=== PATIENT | female | born 1985 | race Two or more races ===

== ENCOUNTER 2022-04-27 21:41 | Inpatient (IN) | payer MEDICAID ==
[~2022-04-27] VITALS: Ht 154.9 cm; Wt 68.0 kg
[2022-04-27] MEDS ORDERED: KETOROLAC 30MG/ML VIAL IV STA (22:53)
[2022-04-27] MEDS ORDERED: SODIUM CHLORIDE 0.9% 1,000 ML IV ONE (23:00)
[2022-04-27 23:16] LABS: BASOPHILS % 0.5 % (0.0-2.0); HEMATOCRIT. 38.4 % (36.0-48.0); HEMOGLOBIN. 13.2 g/dL (12.0-16.0); LYMPHOCYTES % 34.7 % (20.0-50.0); MEAN CORPUSCULAR HEMOGLOBIN 29.4 pg (28.0-32.0); MEAN CORPUSCULAR VOLUME 85.2 fL (81.0-99.0); MEAN PLATELET VOLUME 8.7 fl (7.4-10.4); MONOCYTES % 8.7 % (2.0-8.0); NEUTROPHILS % 55.1 % (40.0-76.0); PLATELET 351 x1000/uL (130-400); RED BLOOD CELL COUNT 4.51 mill/uL (4.2-5.4); RED CELL DISTRIBUTION WIDTH 12.9 % (11.6-14.6)
[2022-04-27 23:17] LABS: CHLORIDE 104 mEq/L (98-107)
[2022-04-27 23:29] LABS: HCG SCREEN NEGATIVE
[2022-04-28] MEDS ORDERED: PIPERACILLIN/TAZ 3.375G PREMIX 50 ML IV ONE (00:45)
[2022-04-28 01:35] LABS: CLARITY URINE CLEAR (CLEAR); COLOR URINE YELLOW (YELLOW); KETONES URINE 2+ (NEGATIVE); LEUKOCYTE ESTERASE URINE NEGATIVE (NEGATIVE); NITRITE URINE NEGATIVE (NEGATIVE); OCCULT BLOOD URINE NEGATIVE (NEGATIVE); PH URINE 5.5 (4.5-8.0); PROTEIN URINE NEGATIVE (NEGATIVE); SPECIFIC GRAVITY URINE 1.011 (1.005-1.030); UROBILINOGEN URINE 0.2 E.U./dL (0.2-1.0)
[2022-04-28] MEDS ORDERED: KETOROLAC 30MG/ML VIAL IV NR (02:15)
[2022-04-28] MEDS ORDERED: PIPERACILLIN/TAZ 3.375G PREMIX 50 ML IV NR (02:15)
[2022-04-28] MEDS ORDERED: IPRATROPIUM/ALBUTEROL 0.5-3(2.5)MG/3ML NEB HHN PRN (10:00)
[2022-04-28] MEDS ORDERED: CLONIDINE 0.1MG TABLET PO PRN (10:00)
[2022-04-28] MEDS ORDERED: DIPHENHYDRAMINE 50MG/ML VIAL IV PRN (10:00)
[2022-04-28] MEDS ORDERED: ONDANSETRON HCL 4MG/2ML INJ IV PRN (10:00)
[2022-04-28] MEDS ORDERED: ACETAMINOPHEN 325MG TABLET PO PRN (10:00)
[2022-04-28] MEDS ORDERED: MORPHINE SULFATE 2 MG/ML CPJ (NOT FOR IM USE) IV PRN (10:00)
[2022-04-28] MEDS: SODIUM CHLORIDE 0.9% 1,000 ML IV SCH ×2 (14:56→20:35)
[2022-04-28] MEDS ORDERED: NALOXONE HCL 0.4MG/ML VIAL IV PRN (16:45)
[2022-04-28 17:00] VITALS: BP 117/78
[2022-04-28 20:00] VITALS: BP 130/90
[2022-04-28 23:31] VITALS: BP 130/90
[2022-04-29 02:00] VITALS: BP 122/85
[2022-04-29 04:00] VITALS: BP 122/85
[2022-04-29 07:12] LABS: BASOPHILS % 0.6 % (0.0-2.0); EOSINOPHILS % 2.3 % (0.0-5.0); HEMOGLOBIN. 12.3 g/dL (12.0-16.0); LYMPHOCYTES % 41.1 % (20.0-50.0); MEAN CORPUSCULAR HEMOGLOBIN 29.1 pg (28.0-32.0); MEAN CORPUSCULAR VOLUME 85.2 fL (81.0-99.0); MEAN PLATELET VOLUME 8.9 fl (7.4-10.4); MONOCYTES % 9.6 % (2.0-8.0); NEUTROPHILS % 46.4 % (40.0-76.0); PLATELET 310 x1000/uL (130-400); RED BLOOD CELL COUNT 4.23 mill/uL (4.2-5.4); RED CELL DISTRIBUTION WIDTH 12.8 % (11.6-14.6)
[2022-04-29 07:55] LABS: CHLORIDE 111 mEq/L (98-107)
[2022-04-29 08:00] VITALS: BP 120/81
[2022-04-29] MEDS ORDERED: ACET-2708 MT (10:12)
[2022-04-29 12:00] VITALS: BP 126/82
[2022-04-29 16:00] VITALS: BP 122/81
[2022-04-29 18:00] VITALS: BP 126/82
== END 2022-04-29 18:51 | disposition home or self-care (01) ==
LOC: ER 21:41 → MICUSO 04-28 02:38 → EDBEDREQ 04-28 02:42 → 6EST 04-28 16:18
PROVIDERS: ADMIT Internal Medicine; ATTEND Internal Medicine
DX: K80.62 Calculus of gallbladder and bile duct with acute cholecystitis without obstruction (principal); E86.0 Dehydration; R63.0 Anorexia; Z98.51 Tubal ligation status; Z68.28 Body mass index [BMI] 28.0-28.9, adult
CPT/HCPCS: 36415; 76705; 80053; 81003; 84703; 85025; 93970; 99285; J1885; J2543; J7030